=== PATIENT | male | born 1945 | race Caucasian/White ===

== ENCOUNTER 2016-05-17 10:25 | Inpatient (IN) | payer MEDICARE, OTHER ==
[~2016-05-17 10:25] MED LIST: ASPIRIN ENTERI325 MG PO; CARDIZEM CD300 MG PO; CATAPRES0.1 MG PO; CLONIDINE; ENALAPRIL MALEA20 MG PO; ETODOLAC400 MG PO; HYDROCHLOROTHIA25 MG PO; LEVAQUIN750 MG PO; NORVASC5 MG PO; TYLENOL325 MG PO; TYLENOL650 MG PO
[2016-05-17] MEDS ORDERED: LASIX20 M1 PO (11:20)
[2016-05-17] MEDS ORDERED: FLECAINIDE ACET50 M1 PO (11:20)
[2016-05-17] MEDS ORDERED: TENORMIN25 M1 PO (11:20)
[2016-05-17] MEDS ORDERED: POTASSIUM CHLO10 ME2 PO (11:21)
[2016-05-17 11:24] LABS: BASO % 0.3 % (0-2); EOS % 0.2 % (0-7); HCT-HEMATOCRIT 38.1 % (36.0-53.5); HGB-HEMOGLOBIN 13.3 gm/dl (13.5-17.0); IMMATURE GRANULOCYTES ABSOLUTE 0.02 tho/cmm (0-0.03); IMMATURE GRANULOCYTES PERCENT 0.2 % (0-0.3); INR 1.6 INR (0.9-1.1); LYMPH % 7.1 % (20-45); LYMPH ABSOLUTE COUNT 0.7 tho/cmm (0.8-4.5); MCH (MEAN CORPUSCULAR HGB) 32.2 pg (28.0-32.0); MCHC MEAN CORPUSCULAR HGB CONC 34.9 % (32.0-36.0); MCV (MEAN CELL VOLUME) 92.3 fl (82.0-96.0); MEAN PLATELET VOLUME 10.2 cmc (9.4-12.4); MONO % 7.4 % (0-12); MONOCYTE ABSOLUTE COUNT 0.8 tho/cmm (0.0-1.2); NEUTROPHIL ABSOLUTE COUNT 8.6 tho/cmm (1.6-8.0); NEUTROPHIL-AUTOMATED 8.6 tho/cmm (1.6-8.0); NEUTROPHILS % 84.8 % (40-80); PLATELET COUNT 161 tho/cmm (150-450); PROTHROMBIN TIME 19.3 SECONDS (9.0-13.6); RED BLOOD COUNT 4.13 mil/cmm (4.40-5.70); RED CELL DISTRIBUTION WIDTH 12.4 % (12.4-16.4); WHITE BLOOD COUNT 10.1 tho/cmm (4.0-10.0)
[2016-05-17] MEDS ORDERED: XARELTO20 M1 PO (11:25)
[2016-05-17] MEDS ORDERED: LISINOPRIL40 M1 PO (11:25)
[2016-05-17] MEDS ORDERED: NORVASC10 M2 PO (11:25)
[2016-05-17 11:37] LABS: ALB/GLOB RATIO 0.9 (0.8-2.0); ALBUMIN 3.2 g/dl (3.5-5.0); ALKALINE PHOSPHATASE 68 U/L (33-138); ALT/SGPT 20 U/L (12-78); BILIRUBIN,TOTAL 0.5 mg/dl (0.0-1.5); BLOOD UREA NITROGEN 18 mg/dl (6-24); CALCIUM 7.5 mg/dl (8.5-10.5); CARBON DIOXIDE-VENOUS 24 mmol/L (22-32); CHLORIDE 112 mmol/l (96-110); CREATININE 1.06 mg/dl (0.60-1.30); GLUCOSE 139 mg/dL (70-110); SODIUM 143 mmol/L (135-145); eGFR VALUE FOR BLACK 81 mL/Min
[2016-05-17 11:43] LABS: ANION GAP 11 mmol/L (0-20); AST/SGOT 24 U/L (10-40); POTASSIUM 3.8 mmol/L (3.7-5.1)
[2016-05-17 12:12] LABS: ESR-ERYTHROCYTE SED RATE 11 mm/hr (0-20)
== END 2016-05-17 17:36 | disposition expired | DRG 64 ==
LOC: EDMED 10:25 → CCU 12:48
PROVIDERS: Emergency Medicine; ADMIT Internal Medicine
PROC: 5A1935Z Respiratory Ventilation, Less than 24 Consecutive Hours (ICD-10-PCS; principal; 2016-05-17)
DX: I61.3 Nontraumatic intracerebral hemorrhage in brain stem (principal); J96.00 Acute respiratory failure, unspecified whether with hypoxia or hypercapnia; I48.2 Chronic atrial fibrillation; I10 Essential (primary) hypertension; Z79.01 Long term (current) use of anticoagulants; Z51.5 Encounter for palliative care; Z66 Do not resuscitate
CPT/HCPCS: C9113; J2060; J2270; J2405; J7030